=== PATIENT | male | born 1970 | race Caucasian/White ===

== ENCOUNTER 2024-05-07 10:15 | Day surgery (SDC) | payer MEDICARE ==
[2024-05-07] MEDS ORDERED: Sodium Chloride 0.9(Preservative Free) 10 ML IJ ONE (10:16)
[2024-05-07] MEDS ORDERED: Depo-Medrol 40 MG/ML IM ONE (10:16)
[2024-05-07] MEDS ORDERED: LIDOCAINE HCL 1% 50 MG/5 ML VL PF IJ ONE (10:16)
[2024-05-07] MEDS ORDERED: DIPRIVAN 200 MG/20 ML IV ONE (12:16)
[2024-05-07] MEDS ORDERED: MORPHINE SULFATE 2 MG INJ ONE (13:03)
[2024-05-07] MEDS ORDERED: Lactated Ringers 1,000 ML IV ONE (13:13)
--- NOTE | 2024-05-07 14:11 | XRAY ---
Indication: Lumbar TORO. Intraoperative fluoroscopy provided for 20 seconds. 3 digital spot image submitted for interpretation demonstrates posterior needle tip projecting just posterior to lumbosacral junction. Small amount of contrast injected for needle tip placement. Correlate with intraoperative findings/report.
--- NOTE | 2024-05-07 15:25 | XRAY ---
20 seconds of fluoroscopy was used in surgery for a lumbar TORO.
== END 2024-05-07 13:25 ==
LOC: SDC-PAIN 10:15
PROVIDERS: ATTEND Psychiatry & Neurology Pain Medicine
DX: M54.16 Radiculopathy, lumbar region (principal); E11.9 Type 2 diabetes mellitus without complications
CPT/HCPCS: 62323; 72100; 77003; 82947; J2001; J2270; J2704; Q9966

== ENCOUNTER 2024-07-02 09:09 | Day surgery (SDC) | payer MEDICARE ==
[2024-07-02] MEDS ORDERED: Decadron 4 MG INJ IV ONE (09:10)
[2024-07-02] MEDS ORDERED: Xylocaine-Mpf 2% 5 Ml Vial IJ ONE (09:10)
[2024-07-02] MEDS ORDERED: DIPRIVAN 200 MG/20 ML IV ONE (10:46)
--- NOTE | 2024-07-02 11:54 | XRAY ---
Indication: Left C2-C4 MBB. Intraoperative fluoroscopy provided for 15 seconds. 3 digital spot image submitted for interpretation demonstrates posterior needle tips projecting over the expected left C2-C4 nerve roots. Correlate with intraoperative findings/report. Incidental lower cervical fusion hardware.
--- NOTE | 2024-07-02 12:10 | XRAY ---
15 seconds of fluoroscopy was used in surgery for a left C2-C4 MBB.
== END 2024-07-02 11:30 | disposition home or self-care (01) ==
LOC: SDC-PAIN 09:09
PROVIDERS: ATTEND Psychiatry & Neurology Pain Medicine
DX: M48.12 Ankylosing hyperostosis [Forestier], cervical region (principal); E11.9 Type 2 diabetes mellitus without complications
CPT/HCPCS: 64490; 64491; 72040; 77002; 82947; J1100; J2704

== ENCOUNTER 2024-08-20 08:25 | Day surgery (SDC) | payer MEDICARE ==
[2024-08-20] MEDS ORDERED: BUPIVACAINE 0.5% VIAL IJ ONE (08:26)
[2024-08-20] MEDS ORDERED: Decadron 4 MG INJ IV ONE (08:26)
[2024-08-20] MEDS ORDERED: DIPRIVAN 200 MG/20 ML IV ONE ×2 (11:11→11:18)
--- NOTE | 2024-08-20 18:48 | XRAY ---
Indication: Left C2-C4 MBB. Intraoperative fluoroscopy provided for 17 seconds. 2 digital spot image submitted for interpretation demonstrates posterior needle tips projecting over the expected left C2-C4 nerve roots. Correlate with intraoperative findings/report. Incidental lower cervical fusion hardware.
--- NOTE | 2024-08-20 19:22 | XRAY ---
17 seconds of fluoroscopy was used in surgery for a left C2-C4 MBB.
== END 2024-08-20 11:55 | disposition home or self-care (01) ==
LOC: SDC-PAIN 08:25
PROVIDERS: ATTEND Psychiatry & Neurology Pain Medicine
DX: M47.812 Spondylosis without myelopathy or radiculopathy, cervical region (principal); E11.9 Type 2 diabetes mellitus without complications
CPT/HCPCS: 64490; 64491; 72040; 77002; 82947; J1100; J2704

== ENCOUNTER 2024-12-17 09:43 | Day surgery (SDC) | payer MEDICARE ==
[2024-12-17] MEDS ORDERED: dexAMETHasone sodium phosphate IJ ONE (09:44)
[2024-12-17] MEDS ORDERED: LIDOCAINE HCL 2% 100 MG/5 ML IJ ONE (09:44)
[2024-12-17] MEDS ORDERED: Lactated Ringers 500 ML IV ONE (09:51)
[2024-12-17] MEDS ORDERED: propofoL IV ONE (10:48)
--- NOTE | 2024-12-17 11:59 | XRAY ---
Indication: Right C2-C4 MBB. Intraoperative fluoroscopy provided for 18 seconds. Single lateral digital spot image submitted for interpretation demonstrates posterior needle tips projecting over presumed right C2-C4 nerve roots. Correlate with intraoperative findings/report. Incidental incompletely visualized lower cervical fusion hardware.
--- NOTE | 2024-12-17 12:58 | XRAY ---
18 seconds of fluoroscopy was used in surgery for a right C2-C4 MBB.
== END 2024-12-17 11:35 | disposition home or self-care (01) ==
LOC: SDC-PAIN 09:43
PROVIDERS: ATTEND Psychiatry & Neurology Pain Medicine
DX: M47.812 Spondylosis without myelopathy or radiculopathy, cervical region (principal); E11.9 Type 2 diabetes mellitus without complications
CPT/HCPCS: 64490; 64491; 72040; 82947; J1100; J2704